=== PATIENT | male | born 1990 | race African-American/Black ===

== ENCOUNTER 2018-01-19 09:53 | Emergency (ER) | payer MEDICAID, OTHER ==
[~2018-01-19] VITALS: Ht 175.3 cm; Wt 72.0 kg
[2018-01-19 10:08] VITALS: BP 122/62
== END 2018-01-19 12:00 | disposition left against medical advice (07) ==
LOC: ER 09:53
DX: R07.89 Other chest pain (principal); R06.02 Shortness of breath; Z53.21 Procedure and treatment not carried out due to patient leaving prior to being seen by health care provider
CPT/HCPCS: 93005

== ENCOUNTER 2018-01-19 17:32 | Emergency (ER) | payer MEDICAID, OTHER ==
[~2018-01-19] VITALS: Ht 175.3 cm; Wt 74.0 kg
[2018-01-19 19:20] VITALS: BP 116/72
== END 2018-01-20 | disposition left against medical advice (07) ==
LOC: ER 20:02
DX: F41.9 Anxiety disorder, unspecified (principal); Z53.21 Procedure and treatment not carried out due to patient leaving prior to being seen by health care provider

== ENCOUNTER 2018-01-20 08:38 | Emergency (ER) | payer MEDICAID ==
[~2018-01-20] VITALS: Ht 175.3 cm; Wt 84.0 kg
[2018-01-20] MEDS ORDERED: LORAZEPAM 1MG TABLET PO ONE (11:45)
[2018-01-20 13:15] VITALS: BP 121/76
== END 2018-01-20 13:55 | disposition home or self-care (01) ==
LOC: ER 10:15
DX: F41.9 Anxiety disorder, unspecified (principal); F31.9 Bipolar disorder, unspecified; G43.909 Migraine, unspecified, not intractable, without status migrainosus
CPT/HCPCS: 71046; 93005; 99284; Z7610

== ENCOUNTER 2018-04-27 16:34 | Emergency (ER) | payer OTHER ==
[~2018-04-27] VITALS: Ht 208.3 cm; Wt 85.0 kg
[2018-04-27 16:36] VITALS: BP 133/91
== END 2018-04-27 18:44 | disposition left against medical advice (07) ==
LOC: ER 16:34
DX: Z53.21 Procedure and treatment not carried out due to patient leaving prior to being seen by health care provider (principal)